=== PATIENT | male | born 2005 | race Hispanic/Latino ===

== ENCOUNTER 2025-05-21 00:07 | Emergency (ER) | payer MEDICAID ==
[~2025-05-21] VITALS: Ht 170.2 cm; Wt 77.1 kg
[2025-05-21 00:42] LABS: IMMATURE GRANULOCYTE ABSOLUTE 0.00 K/uL (0-1); NUCLEATED RED BLOOD CELLS 0.0 % (0.0-0.19); PLATELET COUNT (AUTO) 280 K/uL (130-400); RED BLOOD CELL COUNT(AUTO) 4.33 MIL/uL (4.50-6.20); RED CELL DISTRIBUTION WIDTH 11.8 % (11.0-15.5); WHITE BLOOD COUNT (AUTO) 5.0 K/uL (4.8-10.8)
[2025-05-21 00:48] LABS: CREATININE 0.9 mg/dL (0.5-1.3); GLOMERULAR FILTR. RATE CALC 125 mL/min (>90); GLUCOSE,RANDOM 114 mg/dL (70-105); SODIUM SERUM 142 mmol/L (136-145); UREA NITROGEN, BLOOD 13 mg/dL (7-18)
[2025-05-21 00:52] LABS: ALCOHOL, BLOOD < 3 mg/dL (0-10)
--- NOTE | 2025-05-21 02:44 | NUR ---
[facility] CRISIS LINE CALLED
--- NOTE | 2025-05-21 02:44 | ERN ---
General Chief Complaint: Psych Evaluation Stated Complaint: PSYCH CLEARNCE Time Seen by MD: 00:15 History of Present Illness Initial Comments 19M BIB EMS for possible seizure. Patient requesting psychiatric evaluation. Patient reports hx of schizophrenia, anxiety, depression. He was on his way to [facility] when he had a "seizure" as reported by patient. EMS called. EMS reports that he had a shaking episode that the patient's reported as a seizure. It during the event, you were shaking, but he was alert and able to answer questions and walk at the same time. The episode was brief. Allergies: Coded Allergies: shellfish derived (Unverified Allergy, Unknown, 05/21/25) Past Medical History Past Medical History: Anxiety, Bipolar, Depression, Schizophrenia Medical History Other: PTSD Past Surgical History: None ROS Dictation CONSTITUTIONAL: No chills, no fever, no weakness, no diaphoresis, no malaise. HEAD/FACE: No signs of trauma. EENT: No eye pain, no blurred vision, no tearing, no double vision, no ear pain, no ear discharge, no nose pain, no nasal congestion, no throat pain, no throat swelling, no mouth pain. RESPIRATORY: No cough, no orthopnea, no SOB, no stridor, no wheezing. CARDIOVASCULAR: No chest pain, no edema, no palpitations, no syncope. GASTROINTESTINAL/ABDOMINAL: No abdominal pain, no constipation, no diarrhea, no nausea, no vomiting. GENITOURINARY: No abnormal discharge, no dysuria, no frequent urination, no hematuria. No complaints of pain in the genitals. MUSCULOSKELETAL: No back pain, no gout, no joint pain, no joint swelling, no muscle pain, no muscle stiffness, no neck pain. INTEGUMENTARY: No change in color, no change in hair/nails, no dryness, no lesion, no lumps, no rash. NEUROLOGICAL/PSYCH: No anxiety, not depressed, no emotional problem, no headache, no numbness, no pre-existing deficit, no history of seizures, no tremors, no weakness. HEMATOLOGIC/LYMPHATIC: Not anemic, no history of blood clots, no apparent bleeding, no bruising, glands not swollen. All Systems Negative, Except as Noted. Physical Exam Physical Exam Dictation VITAL SIGNS: Reviewed. GENERAL APPEARANCE: Alert, oriented x3, no acute distress. HEAD AND FACE: Non-traumatic. EYES: PERRL, pink conjunctivas, eyelid no trauma, anterior chamber clear. EARS: Pinnas intact and no signs of trauma or erythema. Ear canals clear and no discharge. TMs no erythema. NOSE: No discharge, no bleeding. OROPHARYNX: Mouth normal, teeth no caries, tongue pink. Pharynx clear, no erythema. Tonsils no exudates, no abscesses noted. Mucous membrane moist. NECK: Supple, non-tender, no thyromegaly, no masses, no JVD, no bruits. BREAST: Deferred. CHEST: No tenderness, no crepitus, no paradoxical movement, no retractions. LUNGS: Clear, well-ventilated, symmetric, no rales, no wheezing, no rhonchi, no stridor, good breath sounds bilaterally. HEART: Regular rate, regular rhythm, no murmur, no gallops. VASCULAR: No peripheral edema. ABDOMEN: Soft, positive bowel sounds, nondistended, no guarding, nontender, no rebound, no masses no hepatomegaly, no splenomegaly, no Talbert's sign, no hernias. RECTAL: Deferred. GENITAL: Deferred. NEUROLOGICAL: Normal speech, gross motor function intact, gross sensory function intact. MUSCULOSKELETAL: Neck nontender, full range of motion, back nontender, full range of motion. EXTREMITIES: Nontender, full range of motion. SKIN: Color pink, dry, no turgor, no rash, no lacerations, no abrasions, no contusions. LYMPHATICS: Deferred. Results Laboratory and Microbiology Lab and Micro Result Laboratory Tests Test 05/21/25 00:34 05/21/25 02:38 White Blood Count 5.0 K/uL (4.8-10.8) Red Blood Count 4.33 MIL/uL (4.50-6.20) L Hemoglobin 15.2 g/dL (14.0-18.0) Hematocrit 41.8 % (42-54) L Mean Corpuscular Volume 96.5 fL (80-100) Mean Corpuscular Hemoglobin 35.1 pg (27.0-33.0) H Mean Corpuscular Hemoglobin Concent 36.4 g/dL (32.0-36.0) H Red Cell Distribution Width 11.8 % (11.0-15.5) Platelet Count 280 K/uL (130-400) Mean Platelet Volume 8.0 fL (7.5-10.5) Immature Granulocyte % (Auto) 0.0 % (0-1) Neutrophils (%) (Auto) 64.5 % (40.0-77.0) Lymphocytes (%) (Auto) 27.7 % (21.0-51.0) Monocytes (%) (Auto) 7.2 % (3.0-13.0) Eosinophils (%) (Auto) 0.4 % (0.0-8.0) Basophils (%) (Auto) 0.2 % (0.0-5.0) Neutrophils # (Auto) 3.2 K/uL (1.8-7.7) Lymphocytes # (Auto) 1.4 K/uL (1.0-4.8) Monocytes # (Auto) 0.4 K/uL (0.1-1.0) Eosinophils # (Auto) 0.02 K/uL (0.00-0.70) Basophils # (Auto) 0.01 K/uL (0.00-0.20) Absolute Immature Granulocyte (auto 0.00 K/uL (0-1) Nucleated Red Blood Cells 0.0 % (0.0-0.19) Red Blood Cell Morphology See comments Sodium Level 142 mmol/L (136-145) Potassium Level 3.5 mmol/L (3.5-5.1) Chloride Level 103 mmol/L (101-111) Carbon Dioxide Level 28 mmol/L (21-32) Blood Urea Nitrogen 13 mg/dL (7-18) Creatinine 0.9 mg/dL (0.5-1.3) Glomerular Filtration Rate Calc 125 mL/min (>90) Random Glucose 114 mg/dL (70-105) H Total Calcium 9.1 mg/dL (8.5-10.1) Salicylates Level < 2.8 mg/dL (2.8-20.0) L Acetaminophen Level < 1 mcg/mL (10-29) L Serum Alcohol < 3 mg/dL (0-10) Urine Opiates Screen NEGATIVE (NEGATIVE) Urine Barbiturates Screen NEGATIVE (NEGATIVE) Urine Phencyclidine Screen NEGATIVE (NEGATIVE) Urine Amphetamines Screen NEGATIVE (NEGATIVE) Urine Benzodiazepines Screen NEGATIVE (NEGATIVE) Urine Cocaine Screen NEGATIVE (NEGATIVE) Urine Marijuana (THC) Screen NEGATIVE (NEGATIVE) MDM CC: Pseudo seizures, reports suicidal ideation requesting transfer to a psychiatric facility Historian: Patient Comorbidities: Schizophrenia, anxiety depression Limitations by social determinants of health: None Differential diagnosis: Pseudo-seizure, seizure-like activity, suicidal ideation, other Vital signs are stable Clinical exam is unremarkable Labs are unremarkable No imaging indicated I saw the patient had one of his pseudoseizures. He was streaking throughout his body and he rolled his eyes back but he is able to answer all questions follow commands and walk at the same time. Very low suspicion that these are any sort of epileptic type seizure. Patient told me that he was recently in a fdc that he has not want to stay in, so he left in his not well come back. She went to [facility] earlier in the day, he was evaluated by asaf, and was found that he did not meet requirements for inpatient a dmission at this time. It was recommended that he go to [facility] voluntarily. He did not make it to [facility], that has gone he called 911 to be taken to this hospital instead. Patient was medically cleared. He was evaluated by asaf here again, and again he was told that he is not a candidate for inpatient transfer at this time. They recommend that he goes to [facility] voluntarily. ED Course Orders Procedure Category Date Status Time Cbc With Differential LAB 05/21/25 Complete 00:30 Basic Metabolic Panel LAB 05/21/25 Complete 00:30 Acetaminophen LAB 05/21/25 Complete 00:30 Salicylate LAB 05/21/25 Complete 00:30 Drug Screen Urine LAB 05/21/25 Complete 00:30 Alcohol, Blood LAB 05/21/25 Complete 00:30 Acetaminophen 325 Tab PHA 05/21/25 Complete (Tylenol 325mg Tab 02:00 Current Medications Medications (Trade) Dose Ordered Sig/Pat Route PRN Reason Start Time Stop Time Status Last Admin Dose Admin Acetaminophen (TYLenol 325MG TAB) 650 mg ONCE ONCE PO 05/21/25 02:00 05/21/25 02:01 DC 05/21/25 01:52 Vital Signs Date Time Temp Pulse Resp B/P (MAP) Pulse Ox O2 Delivery O2 Flow Rate FiO2 05/21/25 04:30 98.8 87 20 141/87 98 Room Air* 0 21 05/21/25 00:36 98.8 92 20 138/90 98 Room Air* 0 21 05/21/25 00:12 98.1 99 16 146/98 96 0 DX & DISP Disposition: Discharge Departure Impression: Primary Impression: Non-epileptic convulsion Condition: Stable Assign Patient to: You do not meet criteria for transfer to a behavioral facility. I recommend that you go to [facility] voluntarily. Return to the emergency department as needed. Referrals: SELF,REFERRAL (PCP) LC MARR DO May 21, 2025 02:44
[2025-05-21 02:56] LABS: AMPHET/METH SCREEN,URINE NEGATIVE (NEGATIVE); BARBITURATE SCREEN, URINE NEGATIVE (NEGATIVE); CANNABINOID SCREEN,URINE NEGATIVE (NEGATIVE); COCAINE SCREEN,URINE NEGATIVE (NEGATIVE)
--- NOTE | 2025-05-21 04:17 | NUR ---
DELFIN ARRIVED AT THIS TIME TO DO PT SCREENING
[2025-05-21 04:30] VITALS: BP 141/87; PULSE 87; RESP 20; TEMP 98.8; O2SAT 98
--- NOTE | 2025-05-21 05:57 | NUR ---
PER TROPICAL SCREENJOHANA LEWIS; PATIENT DOES NOT MEET CRITERIA FOR INPATIENT HOSPICE.
== END 2025-05-21 06:09 | disposition home or self-care (01) ==
LOC: EDH 00:07
DX: F44.5 Conversion disorder with seizures or convulsions (principal); R45.851 Suicidal ideations; F20.9 Schizophrenia, unspecified; F31.9 Bipolar disorder, unspecified; F41.8 Other specified anxiety disorders; Z91.013 Allergy to seafood
CPT/HCPCS: 99283; 80048; 80305; 85025; 36415; G0481